=== PATIENT | female | born 1985 | race Caucasian/White ===

== ENCOUNTER 2023-11-16 07:36 | Emergency (ER) | payer OTHER, SELFPAY ==
[2023-11-16] VITALS (8 sets, daily range): BP systolic 117–140; BP diastolic 70–89; PULSE 92–107; RESP 18; TEMP 36.4; O2SAT 97–100; BMI 29.6
--- NOTE | 2023-11-16 07:52 | DI.RAD.S_ITS ---
PROCEDURE: XR ELBOW RT MIN 3V INDICATIONS: Fall with pain upon extension. TECHNIQUE: 3 views of the elbow were acquired. COMPARISON: None. FINDINGS: Bones: There is a transverse minimally impacted fracture of the radial head/neck. Extension to the articular surface is questionable. No suspicious bony lesions. Soft tissues: Small effusion. No suspicious soft tissue calcifications. IMPRESSION: Minimally impacted fracture of the radial head and neck with questionable extension to the articular surface. Small joint effusion. Approved by: Cam Landers M.D. on 11/16/2023 at 8:10
--- NOTE | 2023-11-16 07:57 | ED.GENADULT ---
HPI - General Adult General Chief complaint: Extremity Injury, Upper Stated complaint: fell, R elbow injury Time Seen by Provider: 11/16/23 07:38 Source: patient Mode of arrival: Ambulatory History of Present Illness HPI narrative: 38-year-old woman with a history of ADHD, is currently deployed and she has 2 sons in the 5th and 3rd grade was getting into the car yesterday slipped on some mud landing on her right elbow. She took some ibuprofen last night but elbow is still sore. She is able to flex completely and with tenderness can extend to a full 180?. No significant swelling but she points to the lateral epicondyle as a significant source of pain. No shoulder clavicle wrist or hand pain. No other concerns Related Data Previous Rx's Medication Instructions Recorded oxycodone-acetaminophen 5 mg-325 1 tab PO Q6H PRN pain #10 tabs 11/16/23 mg tablet Allergies Allergy/AdvReac Type Severity Reaction Status Date / Time bupropion [From Wellbutrin] Allergy ITCHING Verified 11/16/23 07:51 Review of Systems Review of Systems Narrative: Pertinent positive and negative findings as per HPI Patient History Medical History (Updated 11/16/23 @ 09:13 by Ebonie Alva MD) ADHD Social History Smoking Status: Never smoker Smoking Status: Never smoker Substance Use Type: marijuana Exam Initial Vital Signs Initial Vital Signs: Vital Signs Temperature 97.6 F 11/16/23 07:46 Pulse Rate 102 H 11/16/23 07:46 Respiratory Rate 18 11/16/23 07:46 Blood Pressure 140/89 11/16/23 07:46 Pulse Oximetry 100 11/16/23 07:46 Oxygen Delivery Method Room Air 11/16/23 07:46 General: Alert appropriate in no acute distress Respiratory: Able to speak in full sentences, no obvious respiratory distress Skin: No obvious rashes, warm and dry Neurologic: Grossly intact no obvious asymmetries or abnormalities Psych: appropriate insight and affect, cooperative Extremity: Right upper extremity is examined. There is no tenderness or effusion at the shoulder with full range of motion at the shoulder. Some tenderness to the olecranon, mild elbow effusion. Able to flex completely in extend with pain to 180?. Minor tenderness with pronation and supination of the forearm. Wrist and hand are otherwise unremarkable there is no abrasions or contusions Course Orders Ordered: ED Orders 11/16/23 07:52 XR elbow RT min 3V Stat Discontinued Medications Acetaminophen (Acetaminophen 325 Mg Tablet) 325 mg PO NOW ONE Stop: 11/16/23 08:03 Last Admin: 11/16/23 08:06 Dose: 325 mg Ibuprofen (Ibuprofen 400 Mg Tablet) 400 mg PO NOW ONE Stop: 11/16/23 08:03 Last Admin: 11/16/23 08:07 Dose: 400 mg Vital Signs Vital signs: Vital Signs - 8 hr 11/16/23 07:46 11/16/23 07:53 Temperature 97.6 F Pulse Rate 102 H Pulse Rate [Left Radial] 100 H Respiratory Rate 18 Blood Pressure 140/89 Pulse Oximetry 100 Oxygen Delivery Method Room Air Medical Decision Making MDM Narrative Medical decision making narrative: CC: Fall and right elbow Data collected from: patient Social determinants of health that may influence the patients condition: Single mother, has been Differential considered: Fracture, contusion, injury to the shoulder wrist Exam documented above, pertinent findings include: Minor elbow effusion, tenderness with range of motion but does have full range of motion. Neurovascularly intact Imaging studies independently reviewed: To my view no significant bony abnormalities but I am concerned with increased edema and high-risk for fracture. Radiology read:Minimally impacted fracture of the radial head and neck with questionable extension to the articular surface. Small joint effusion. Consultations: Care is reviewed with Dr. Chou, orthopedist. He reviews x-rays in real-time. Agrees with posterior splint, sling and early orthopedic follow up Treatments: Oral ibuprofen and Tylenol Procedure: Long-arm posterior splint placed by nursing staff. Sling applied afterward. Patient is neurovascularly intact pre and postprocedure. Pain is better controlled with the immobilization Discussion: The ibuprofen Tylenol combination has been moderately effective. Splinting has helped with the pain control. Patient understands her diagnosis, shared films with her. She has been given a small prescription for Percocet to use at night if she is having significant pain. Understands need for follow up with Orthopedic surgery for definitive treatment of her radial head and neck fracture. Discharge Plan Departure Patient Disposition: Home Clinical Impression: Elbow fracture, right Qualifiers: Encounter type: initial encounter Fracture type: closed Qualified Code(s): S42.401A - Unspecified fracture of lower end of right humerus, initial encounter for closed fracture Instructions: DI for Elbow Fracture Activity Restrictions/Additional Instructions: Thank you for coming in today Unfortunately do have a small fracture in your elbow, it does not look like it is going to need surgery. You will need to follow up [facility]. I reviewed your x-rays with Dr. Bronson today. Please contact [facility] at [phone], explain that you are in the emergency department and need an appointment for definitive treatment for your elbow fracture Using 400 mg of ibuprofen (2 [id number] pills) and 1 Tylenol every 6 hours can be very helpful in controlling pain. For severe pain you can use 1 Percocet with 400 mg of ibuprofen. If you do choose to use Percocet please recognize that it does have narcotic in it there is addiction potential and it will cause constipation. 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 Prescriptions: New oxycodone-acetaminophen 5-325 mg tablet 1 tab PO Q6H PRN (Reason: pain) Qty: 10 0RF Stand Alone Forms: Patient Portal/API
[2023-11-16] MEDS: ACETAMINOPHEN 325 MG TABLET PO (08:06)
[2023-11-16] MEDS: IBUPROFEN 400 MG TABLET PO (08:07)
== END 2023-11-16 09:26 | disposition home or self-care (01) ==
PROVIDERS: Emergency Provider Emergency Medicine
DX: S42.401A Unspecified fracture of lower end of right humerus, initial encounter for closed fracture (principal); W01.0XXA Fall on same level from slipping, tripping and stumbling without subsequent striking against object, initial encounter
CPT/HCPCS: 29105; 73080; 99283